=== PATIENT | female | born 1970 | race Caucasian/White ===

== ENCOUNTER 2024-02-23 16:46 | Outpatient (CLI) | payer BC ==
[2024-02-23 17:20] LABS: #Basophils 0.09 10x3/uL (0.0-0.2); %Basophils 0.9 % (0.0-1.0); %Eosinophils 2.9 % (0.0-10.0); %Lymphocytes 21.4 % (21.0-51.0); %Monocytes 6.8 % (0.0-10.0); %Neutrophils 67.7 % (42.0-75.0); Hematocrit 41.4 % (36.0-47.0); Hemoglobin 14.2 g/dL (12.0-16.0); Mean Corpuscular HGB CONC 34.3 g/dL (32.0-36.0); Mean Corpuscular Hemoglobin 33.3 pg (27.0-31.0); Mean Platelet Volume 10.9 fL (7.4-10.4); Platelet Count 270 10x3/uL (130-400); RBC Distribution Width 11.6 % (11.5-14.5); Red Blood Cell (RBC) Count 4.27 mill/uL (4.20-5.40)
[2024-02-23 17:33] LABS: BHCG - Serum Negative (NEGATIVE); Pregs Control Background? CLEAR/WHITE (CLR/WHITE); Pregs Control Bar Appear? YES (CONTROL BAR)
[2024-02-23 17:36] LABS: ALT (SGPT) 16 U/L (8-55); AST (SGOT) 20 U/L (5-34); Albumin 4.5 g/dL (3.5-5.0); Alkaline Phosphatase 62 U/L (40-110); Anion Gap 10 mmol/L (10-20); BUN (Urea Nitrogen) 20 mg/dL (9.8-20.1); Bilirubin, Direct 0.2 mg/dL (0.1-0.3); Bilirubin, Total 0.7 mg/dL (0.2-1.2); Calc. Creatinine Clearance 0 mL/min (70-130); Calcium 9.8 mg/dL (7.8-10.44); Carbon Dioxide 28 mmol/L (22-29); Chloride 101 mmol/L (98-107); Estimated GFR 69; Globulin 3.1 g/dL (2.4-3.5); Glucose 98 mg/dL (70-105); Potassium 3.9 mmol/L (3.5-5.1); Protein, Total 7.6 g/dL (6.0-8.3); Sodium 135 mmol/L (136-145)
== END 2024-02-23 16:47 | disposition home or self-care (01) ==
LOC: LABBT 16:46
PROVIDERS: ATTEND Surgery
DX: Z01.818 Encounter for other preprocedural examination (principal); K80.20 Calculus of gallbladder without cholecystitis without obstruction
CPT/HCPCS: 80053; 80076; 84703; 85025; 93005; 93010

== ENCOUNTER 2024-02-24 08:25 | Day surgery (SDC) | payer BC ==
[2024-02-23 17:12] VITALS: BMI 22.3
[2024-02-24] MEDS ORDERED: PROPOFOL 20 ML ONE (09:01)
[2024-02-24] MEDS ORDERED: EPINEPHrine 1 MG/ML VIAL ONE (09:30)
[2024-02-24] MEDS ORDERED: Indocyanine Green 25 MG/10 ML VIAL ONE (09:30)
[2024-02-24] MEDS ORDERED: Bupivacaine 0.25% HCL 30 ML VIAL ONE (09:31)
[2024-02-24] MEDS ORDERED: fentaNYL PF 100 MCG/2 ML SYRINGE ONE (09:44)
[2024-02-24] MEDS ORDERED: Midazolam HCl 2 mg/2 ml Vial ONE (09:44)
[2024-02-24] MEDS ORDERED: Ondansetron PF 4 MG/2 ML Vial ONE ×2 (09:45→13:23)
[2024-02-24] MEDS ORDERED: Dexamethasone 4 mg/ml Vial ONE (09:45)
[2024-02-24] MEDS ORDERED: cefOXitin 2 GM VIAL ONE (09:52)
[2024-02-24] MEDS ORDERED: Sodium Chloride 0.9% 100 ML ONE (09:53)
[2024-02-24] MEDS ORDERED: Lidocaine 2% PF 5 ML VIAL ONE (10:09)
[2024-02-24] MEDS ORDERED: Rocuronium Bromide 10 MG/ML (10ML VIAL) ONE (10:09)
[2024-02-24] MEDS ORDERED: PHENYLEPHRINE-NS 100 MCG/ML 10 ML SYRINGE ONE (10:33)
[2024-02-24] MEDS ORDERED: SUGAMMADEX SODIUM 200 MG/2 ML VIAL ONE (10:36)
[2024-02-24] MEDS ORDERED: Ketorolac Tromethamine 30 MG (1 mL) VIAL ONE (10:37)
[2024-02-24] MEDS ORDERED: fentaNYL 50 mcg/mL 1 mL Vial ONE ×4 (10:42→13:53)
[2024-02-24] MEDS ORDERED: Meperidine HCl/PF 25 MG (1 mL) VIAL ONE (11:20)
[2024-02-24] MEDS ORDERED: HYDROmorphone 0.5 MG/0.5 ML SYRINGE ONE ×4 (11:35→12:22)
[2024-02-24] MEDS ORDERED: oxyCODONE 5 MG TAB ONE (14:52)
== END 2024-02-24 17:14 | disposition home or self-care (01) ==
LOC: SDC 08:25
PROVIDERS: ATTEND Surgery
PROC: 0FT44ZZ Resection of Gallbladder, Percutaneous Endoscopic Approach (ICD-10-PCS; principal; 2024-02-24)
DX: K80.10 Calculus of gallbladder with chronic cholecystitis without obstruction (principal); F41.9 Anxiety disorder, unspecified; F32.A Depression, unspecified; Z90.89 Acquired absence of other organs; Z90.49 Acquired absence of other specified parts of digestive tract; Z98.890 Other specified postprocedural states; Z90.721 Acquired absence of ovaries, unilateral; Z79.899 Other long term (current) drug therapy; Z88.7 Allergy status to serum and vaccine; Z88.5 Allergy status to narcotic agent; Z88.8 Allergy status to other drugs, medicaments and biological substances
CPT/HCPCS: 88304; C1889; J0171; J0665; J0694; J1100; J1170; J1885; J2001; J2175; J2250; J2405; J2704; J3010